=== PATIENT | female | born 1980 | race Caucasian/White ===

== ENCOUNTER 2020-08-16 04:29 | Inpatient (IN) | payer SELFPAY ==
[~2020-08-16] VITALS: Ht 152.4 cm; Wt 47.0 kg
[~2020-08-16 04:29] MED LIST: ASTHMA MEDS; DEMEROL50 MG PO; TYLENOL SINUS; tyle
[2020-08-16 05:16] LABS: BASOPHILS 0 % (0-2); EOSINOPHILS 0 % (0-7); HEMOGLOBIN 12.8 g/dL (12-16); IMMATURE GRANULOCYTES 0.3 % (0-5); LYMPHOCYTE ABS# 1.37 10x3/uL (1.18-3.74); LYMPHOCYTES 6.7 % (15-50); MCH 26.3 pg (26.0-34.0); MCHC 32.8 g/dL (31.0-37.0); MCV 80.1 fL (80.0-100.0); MEAN PLATELET VOLUME 9.9 fL (7.4-10.4); MONOCYTES 13.9 % (2-11); NEUTROPHIL ABS# 16.28 10x3/uL (1.56-6.13); NEUTROPHILS 79.1 % (40-80); PLATELET COUNT 219 10x3/uL (130-400); RBC 4.87 10x6/uL (4.00-5.40); RDW 15.8 % (11.5-14.5); WBC 20.6 10x3/uL (4.8-10.8)
[2020-08-16 05:21] LABS: CALC OSMOLALITY 263 mosm/kg (275-300); CALCIUM 9.3 mg/dL (8.5-10.1); CHLORIDE - SERUM 95 mmol/L (98-107); CREATININE - SERUM 1.2 mg/dL (0.6-1.3); GLUCOSE 95 mg/dL (74-106); POTASSIUM - SERUM 3.6 mmol/L (3.5-5.1); SODIUM 129 mmol/L (136-145); UREA NITROGEN 27 mg/dL (7-18); eGFR NON AFRICAN AMERICAN 52 mL/min (90-120)
[2020-08-16 05:29] LABS: ALBUMIN 2.7 g/dL (3.4-5.0); ALKALINE PHOSPHATASE 77 U/L (30-120); ALT (SGPT) 14 U/L (10-68); AMYLASE - SERUM 31 U/L (25-115); BILIRUBIN - TOTAL 0.22 mg/dL (0.2-1.3); LIPASE 79 U/L (73-393); PROTEIN - SERUM 7.6 g/dL (6.4-8.2); TROPONIN-I < 0.017 ng/mL (0.000-0.060)
[2020-08-16 05:35] LABS: HCG URINE NEGATIVE (NEGATIVE)
[2020-08-16 05:35] LABS: HCG SERUM NEGATIVE (NEGATIVE)
[2020-08-16 05:36] LABS: BILIRUBIN NEGATIVE (NEGATIVE); KETONE NEGATIVE (NEGATIVE); NITRITE NEGATIVE (NEGATIVE); UDS - AMPHET POSITIVE QUAL (NEGATIVE); UDS - BARB NEGATIVE QUAL (NEGATIVE); UDS - BENZO NEGATIVE QUAL (NEGATIVE); UDS - COCAINE NEGATIVE QUAL (NEGATIVE); UDS - OPIATE POSITIVE QUAL (NEGATIVE); UDS - PCP NEGATIVE QUAL (NEGATIVE); UDS - THC POSITIVE QUAL (NEGATIVE); UROBILINOGEN NORMAL mg/dL (< 2)
[2020-08-16 05:39] LABS: BACTERIA MODERATE HPF (NONE SEEN); SQUAMOUS EPITHELIAL 0-5 HPF (0-4)
--- NOTE | 2020-08-16 07:09 | NUR ---
REPORT TO ONCOMING SHIFT
[2020-08-16 08:37] VITALS: BP 92/88
[2020-08-16 08:44] VITALS: BP 90/60; Ht 152.4 cm; Wt 47.0 kg
[2020-08-16 13:14] VITALS: BP 95/89
[2020-08-16 18:27] VITALS: BP 96/85
[2020-08-16 20:00] VITALS: BP 102/64
[2020-08-17] VITALS: BP 115/55
--- NOTE | 2020-08-17 03:42 | NUR ---
PATIENT HAD ELEVATED TEMP, MEDICATED PER AUG. HAD FULL SHOWER. ALERT AND ORIENTED. MEDICATED FOR FLANK PAIN.
[2020-08-17 04:00] VITALS: BP 87/38
[2020-08-17 05:07] LABS: BASOPHILS 0.1 % (0-2); EOSINOPHILS 0.5 % (0-7); IMMATURE GRANULOCYTES 0.2 % (0-5); LYMPHOCYTE ABS# 1.49 10x3/uL (1.18-3.74); LYMPHOCYTES 14.5 % (15-50); MCH 25.8 pg (26.0-34.0); MCHC 32.2 g/dL (31.0-37.0); MCV 80.2 fL (80.0-100.0); MEAN PLATELET VOLUME 9.9 fL (7.4-10.4); MONOCYTES 14.3 % (2-11); NEUTROPHIL ABS# 7.27 10x3/uL (1.56-6.13); NEUTROPHILS 70.4 % (40-80); PLATELET COUNT 198 10x3/uL (130-400); RDW 15.8 % (11.5-14.5)
[2020-08-17 05:18] LABS: HEMATOCRIT 31.1 % (36.0-48.0); RBC 3.88 10x6/uL (4.00-5.40); WBC 10.3 10x3/uL (4.8-10.8)
[2020-08-17 05:35] LABS: ALKALINE PHOSPHATASE 67 U/L (30-120); ALT (SGPT) 12 U/L (10-68); CALCIUM 8.2 mg/dL (8.5-10.1); CARBON DIOXIDE 25.3 mmol/L (21.0-32.0); CHLORIDE - SERUM 102 mmol/L (98-107); GLUCOSE 102 mg/dL (74-106); MAGNESIUM - SERUM 1.7 mg/dL (1.8-2.4); POTASSIUM - SERUM 3.2 mmol/L (3.5-5.1); PROTEIN - SERUM 5.7 g/dL (6.4-8.2); SODIUM 134 mmol/L (136-145)
[2020-08-17 05:47] LABS: CALC OSMOLALITY 268 mosm/kg (275-300); CREATININE - SERUM 0.8 mg/dL (0.6-1.3); UREA NITROGEN 16 mg/dL (7-18); eGFR NON AFRICAN AMERICAN 84 mL/min (90-120)
[2020-08-17 08:37] VITALS: BP 130/52
[2020-08-17 10:12] LABS: HEPATITIS C ANTIBODY <0.1 S/CO RAT (0.0-0.9)
[2020-08-17 12:19] VITALS: BP 100/68
--- NOTE | 2020-08-17 13:14 | NUR ---
SUMMONED TO PATIENT ROOM SITTING UP IN BED WITH SIGNIFICANT OTHER AT BEDSIDE PATIENT STATES SHE WANTS TO GO HOME EXPLAINED LEAVEING AMA STAY WILL NOT BE COVERED BY INSURANCE PATIENT INISISTS ON LEAVING WHEN ASKED REASON WHY AND IS THERE ANYTHING WRONG OR THAT I CAN FOR HER STATES " I JUST WANNA GO HOME". AMA PAPERWORK GIVEN AND SIGNED IV REMOVED PATIENT AMBULATED INDEPENDENTLY WITH FAMILY OUT OF FACILITY.
[2020-08-18 20:07] LABS: CHLAMYDIA TRACHOMATIS, NAA Negative (Negative)
== END 2020-08-17 13:22 | disposition left against medical advice (07) | DRG 690 ==
LOC: D.ER 04:29 → D.MS 06:48
PROVIDERS: Family Medicine; ADMIT Family Medicine Adult Medicine; ATTEND Family Medicine Adult Medicine
DX: N10 Acute pyelonephritis (principal); E87.1 Hypo-osmolality and hyponatremia; N39.0 Urinary tract infection, site not specified; J45.909 Unspecified asthma, uncomplicated; F15.10 Other stimulant abuse, uncomplicated; F32.9 Major depressive disorder, single episode, unspecified; F17.200 Nicotine dependence, unspecified, uncomplicated; D72.829 Elevated white blood cell count, unspecified